=== PATIENT | male | born 1955 | race Caucasian/White ===

== ENCOUNTER 2017-02-09 06:44 | Inpatient (IN) | payer OTHER ==
[2017-02-09 07:34] LABS: ADD MAN DIFF? NO
[2017-02-09] MEDS: METHYLPREDNISOLONE 125 MG INJ IV (07:35)
[2017-02-09] MEDS: NITROGLYCERIN (SL) 0.4 MG TAB SL (07:36)
[2017-02-09] MEDS: FUROSEMIDE 40 MG INJ IV (07:36)
[2017-02-09] MEDS: NITROGLYCERIN 2% 1 GM OINT PKT TD (07:36)
[2017-02-09 07:41] LABS: BASOPHILS % 0.4 % (0.0-2.0); EOSINOPHILS % 0.3 % (0.0-7.0); HEMATOCRIT 42.9 % (42.0-52.0); HEMOGLOBIN 14.2 g/dl (14.0-18.0); LYMPHOCYTES # 1.4 10^3/ul (0.8-2.9); LYMPHOCYTES % 17.2 % (15.0-51.0); MEAN CORPUSCULAR HEMOGLOBIN 32.1 pg (29.0-33.0); MEAN CORPUSCULAR HGB CONC 33.1 g/dl (32.0-37.0); MEAN CORPUSCULAR VOLUME 97.1 fl (82.0-101.0); MEAN PLATELET VOLUME 11.3 fl (7.4-10.4); MONOCYTE # 0.6 10^3/ul (0.3-0.9); MONOCYTES % 7.2 % (0.0-11.0); NEUTROPHIL # 5.9 10^3/ul (1.6-7.5); NEUTROPHILS % 74.4 % (39.0-77.0); PLATELET COUNT 157 10^3/UL (140-415); RED BLOOD COUNT 4.42 10^6/ul (4.70-6.10); RED CELL DISTRIBUTION WIDTH 13.7 % (11.5-14.5)
[2017-02-09] MEDS: ASPIRIN 81 MG TAB PO (07:42)
[2017-02-09] MEDS: IPRATROPIUM (NEB) 0.5 MG/2.5 ML AMP INH (07:57)
[2017-02-09] MEDS: LEVALBUTEROL (NEB) 1.25 MG/0.5 ML AMP INH (07:58)
[2017-02-09 08:03] LABS: INR 1.01; PROTIME 13.4 Sec (11.9-14.9)
[2017-02-09 08:07] LABS: ALANINE AMINOTRANSFERASE 259 IU/L (13-69); ALBUMIN 4.4 g/dl (3.3-4.9); ALBUMIN/GLOBULIN RATIO 1.62; ALKALINE PHOSPHATASE 121 IU/L (42-121); ANION GAP 19 (8-16); ASPARTATE AMINO TRANSFERASE 217 IU/L (15-46); BILIRUBIN,INDIRECT 0.9 mg/dl (0-1.1); BILIRUBIN,TOTAL 0.9 mg/dl (0.2-1.3); BLOOD UREA NITROGEN 30 mg/dl (7-20); CALCIUM 9.1 mg/dl (8.4-10.2); CARBON DIOXIDE 22 mmol/L (21-31); CHLORIDE 106 mmol/L (97-110); CREATININE 0.78 mg/dl (0.61-1.24); GLUCOSE 132 mg/dl (70-220); POTASSIUM 3.7 mmol/L (3.5-5.1); SODIUM 143 mmol/L (135-144); TOTAL PROTEIN 7.1 g/dl (6.1-8.1)
[2017-02-09 08:19] LABS: TROPONIN-I 0.051 ng/ml (0.00-0.12)
[2017-02-09 08:44] LABS: D-DIMER 1375.89 ng/ml (<460)
[2017-02-09 08:55] LABS: LACTIC ACID 1.8 mmol/L (0.5-2.0)
[2017-02-09 09:39] LABS: ADD UMIC YES; UR ASCORBIC ACID NEGATIVE (NEGATIVE); UR BILIRUBIN (Dip) NEGATIVE (NEGATIVE); UR BLOOD (Dip) 1+ mg/dL (NEGATIVE); UR CLARITY CLEAR (CLEAR); UR COLOR STRAW (YELLOW); UR GLUCOSE (Dip) NEGATIVE (NEGATIVE); UR KETONES (Dip) NEGATIVE (NEGATIVE); UR LEUKOCYTE ESTERASE (Dip) NEGATIVE Leu/ul (NEGATIVE); UR NITRITE (Dip) NEGATIVE (NEGATIVE); UR RBC 0 /HPF (0-5); UR SPECIFIC GRAVITY (Dip) 1.006 (1.003-1.030); UR TOTAL PROTEIN (Dip) NEGATIVE (NEGATIVE); UR UROBILINOGEN (Dip) NEGATIVE (NEGATIVE); UR WBC 1 /HPF (0-5)
[2017-02-09] MEDS ORDERED: ONDANSETRON 4 MG INJ IV ×2 (10:30→11:30)
[2017-02-09] MEDS ORDERED: ACETAMINOPHEN 325 MG TAB PO (10:30)
[2017-02-09] MEDS: IOHEXOL 100 ML (10:44)
[2017-02-09] MEDS: SOD CHLORIDE 0.9% 100 ML (10:44)
[2017-02-09] MEDS ORDERED: NACL 0.9% 3 ML SYG IV (11:30)
[2017-02-09] MEDS ORDERED: HYDROCODONE/APAP (5/325) TAB PO ×2 (11:30)
[2017-02-09] MEDS ORDERED: DOCUSATE SODIUM 100 MG CAP PO (11:30)
[2017-02-09 11:58] LABS: LACTIC ACID 2.4 mmol/L (0.5-2.0)
[2017-02-09 13:06] LABS: CREATINE KINASE 42 IU/L (23-200)
[2017-02-09 13:20] LABS: CK INDEX 2.4
[2017-02-09 13:22] LABS: CK-MB 1.02 ng/ml (0.0-2.4)
[2017-02-09 13:23] LABS: TROPONIN-I 0.164 ng/ml (0.00-0.12)
[2017-02-09] MEDS: FAMOTIDINE 20 MG TAB PO ×2 (13:29→22:56)
[2017-02-09 13:39] LABS: THYROID STIMULATING HORMONE 0.477 MIU/L (0.465-4.680)
[2017-02-09] MEDS: ENOXAPARIN 40 MG/0.4 ML SYG SC (13:43)
[2017-02-09 18:13] LABS: CREATINE KINASE 41 IU/L (23-200)
[2017-02-09 18:25] LABS: CK INDEX 3.3; TROPONIN-I 0.059 ng/ml (0.00-0.12)
[2017-02-09 18:36] LABS: CK-MB 1.37 ng/ml (0.0-2.4)
[2017-02-09] MEDS: NICOTINE (21 MG/24 HR) PATCH TRANSDERM (22:56)
[2017-02-10] MEDS: DIPHENHYDRAMINE 25 MG CAP PO (00:01)
[2017-02-10 06:07] LABS: ADD MAN DIFF? NO
[2017-02-10 06:28] LABS: BASOPHILS % 0.1 % (0.0-2.0); HEMATOCRIT 41.8 % (42.0-52.0); HEMOGLOBIN 14.4 g/dl (14.0-18.0); LYMPHOCYTES # 0.9 10^3/ul (0.8-2.9); LYMPHOCYTES % 11.7 % (15.0-51.0); MEAN CORPUSCULAR HEMOGLOBIN 33.1 pg (29.0-33.0); MEAN CORPUSCULAR HGB CONC 34.4 g/dl (32.0-37.0); MEAN CORPUSCULAR VOLUME 96.1 fl (82.0-101.0); MEAN PLATELET VOLUME 11.4 fl (7.4-10.4); MONOCYTE # 0.4 10^3/ul (0.3-0.9); MONOCYTES % 5.8 % (0.0-11.0); NEUTROPHIL # 6.1 10^3/ul (1.6-7.5); PLATELET COUNT 141 10^3/UL (140-415); RED BLOOD COUNT 4.35 10^6/ul (4.70-6.10); RED CELL DISTRIBUTION WIDTH 13.7 % (11.5-14.5)
[2017-02-10 06:28] LABS: WHITE BLOOD COUNT 7.4 10^3/ul (4.8-10.8)
[2017-02-10 06:47] LABS: ANION GAP 20 (8-16); BLOOD UREA NITROGEN 32 mg/dl (7-20); CALCIUM 9.4 mg/dl (8.4-10.2); CARBON DIOXIDE 24 mmol/L (21-31); CHLORIDE 106 mmol/L (97-110); CREATININE 0.58 mg/dl (0.61-1.24); GLUCOSE 149 mg/dl (70-220); POTASSIUM 4.6 mmol/L (3.5-5.1); SODIUM 145 mmol/L (135-144)
[2017-02-10] MEDS: SOD CHLORIDE 0.9% 1,000 ML IV (08:30)
[2017-02-10 08:40] LABS: B-TYPE NATRIURETIC PEPTIDE 6580 PG/ML (0-125)
[2017-02-10] MEDS: ENOXAPARIN 40 MG/0.4 ML SYG SC (09:00)
[2017-02-10] MEDS: ASPIRIN 81 MG TAB PO (10:24)
[2017-02-10] MEDS: FAMOTIDINE 20 MG TAB PO ×2 (10:24→21:18)
[2017-02-10 10:36] LABS: LACTIC ACID 1.5 mmol/L (0.5-2.0)
[2017-02-10] MEDS ORDERED: IODIXANOL LOCM 100 ML BTL ×2 (18:05→18:18)
[2017-02-10] MEDS ORDERED: LIDOCAINE 1% (MDV) 20 ML INJ (18:05)
[2017-02-10] MEDS ORDERED: HEPARIN 1000 UNITS/ML 10 ML INJ ×2 (18:18→19:46)
[2017-02-10] MEDS ORDERED: NITROGLYCERIN (IC) 100 MCG/ML INJ (18:19)
[2017-02-10] MEDS ORDERED: VERAPAMIL 5 MG INJ (18:19)
[2017-02-10] MEDS ORDERED: MIDAZOLAM 1 MG/ML 2 ML INJ (18:19)
[2017-02-10] MEDS ORDERED: FENTAnyl 50 MCG/ML VIAL (18:19)
[2017-02-10] MEDS ORDERED: CLOPIDOGREL 300 MG TAB (18:59)
[2017-02-10] MEDS ORDERED: ASPIRIN 325 MG TAB (18:59)
[2017-02-10] MEDS: NICOTINE (21 MG/24 HR) PATCH TRANSDERM (20:30)
[2017-02-10] MEDS ORDERED: ATORVASTATIN 20 MG TAB PO (21:00)
[2017-02-10] MEDS: ATORVASTATIN 40 MG TAB PO (21:18)
[2017-02-11] MEDS: DIAZEPAM 5 MG TAB PO (00:11)
[2017-02-11 05:19] LABS: ADD MAN DIFF? NO
[2017-02-11 05:28] LABS: BASOPHILS % 0.1 % (0.0-2.0); EOSINOPHILS % 0.1 % (0.0-7.0); HEMATOCRIT 43.3 % (42.0-52.0); HEMOGLOBIN 14.2 g/dl (14.0-18.0); LYMPHOCYTES # 1.3 10^3/ul (0.8-2.9); LYMPHOCYTES % 11.5 % (15.0-51.0); MEAN CORPUSCULAR HEMOGLOBIN 32.6 pg (29.0-33.0); MEAN CORPUSCULAR HGB CONC 32.8 g/dl (32.0-37.0); MEAN CORPUSCULAR VOLUME 99.5 fl (82.0-101.0); MEAN PLATELET VOLUME 11.2 fl (7.4-10.4); MONOCYTE # 0.7 10^3/ul (0.3-0.9); MONOCYTES % 6.5 % (0.0-11.0); NEUTROPHIL # 8.8 10^3/ul (1.6-7.5); NEUTROPHILS % 81.2 % (39.0-77.0); PLATELET COUNT 167 10^3/UL (140-415); RED BLOOD COUNT 4.35 10^6/ul (4.70-6.10); RED CELL DISTRIBUTION WIDTH 14.4 % (11.5-14.5)
[2017-02-11 05:28] LABS: WHITE BLOOD COUNT 10.9 10^3/ul (4.8-10.8)
[2017-02-11 06:04] LABS: ANION GAP 17 (8-16); BLOOD UREA NITROGEN 37 mg/dl (7-20); CALCIUM 9.5 mg/dl (8.4-10.2); CARBON DIOXIDE 26 mmol/L (21-31); CHLORIDE 109 mmol/L (97-110); CREATININE 0.68 mg/dl (0.61-1.24); GLUCOSE 114 mg/dl (70-220); MAGNESIUM 2.1 mg/dl (1.7-2.5); POTASSIUM 4.5 mmol/L (3.5-5.1); SODIUM 147 mmol/L (135-144)
[2017-02-11] MEDS: CLOPIDOGREL 75 MG TAB PO (09:47)
[2017-02-11] MEDS: FAMOTIDINE 20 MG TAB PO ×2 (09:47→20:23)
[2017-02-11] MEDS: ASPIRIN 81 MG TAB PO (09:47)
[2017-02-11] MEDS: NICOTINE (21 MG/24 HR) PATCH TRANSDERM (09:48)
[2017-02-11] MEDS: ENOXAPARIN 40 MG/0.4 ML SYG SC (09:49)
[2017-02-11 17:11] LABS: TROPONIN-I 0.082 ng/ml (0.00-0.12)
[2017-02-11 17:11] LABS: B-TYPE NATRIURETIC PEPTIDE 4800 PG/ML (0-125)
[2017-02-11] MEDS ORDERED: METOPROLOL 5 MG INJ IV (17:30)
[2017-02-11] MEDS ORDERED: METOPROLOL 25 MG TAB PO (17:30)
[2017-02-11] MEDS: FUROSEMIDE 40 MG INJ IV (17:35)
[2017-02-11] MEDS: ATORVASTATIN 40 MG TAB PO (20:23)
[2017-02-12] MEDS: FUROSEMIDE 20 MG INJ IV ×2 (06:22→14:59)
[2017-02-12] MEDS ORDERED: METOPROLOL 25 MG TAB NGT (09:00)
[2017-02-12] MEDS: CLOPIDOGREL 75 MG TAB PO (09:11)
[2017-02-12] MEDS: FAMOTIDINE 20 MG TAB PO ×2 (09:11→20:37)
[2017-02-12 09:12] LABS: ADD MAN DIFF? NO
[2017-02-12] MEDS: ENOXAPARIN 40 MG/0.4 ML SYG SC (09:12)
[2017-02-12 09:15] LABS: BASOPHILS % 0.3 % (0.0-2.0); EOSINOPHILS # 0.1 10^3/ul (0.0-0.5); EOSINOPHILS % 0.8 % (0.0-7.0); HEMATOCRIT 47.8 % (42.0-52.0); HEMOGLOBIN 16.5 g/dl (14.0-18.0); LYMPHOCYTES # 1.8 10^3/ul (0.8-2.9); LYMPHOCYTES % 22.8 % (15.0-51.0); MEAN CORPUSCULAR HEMOGLOBIN 33.2 pg (29.0-33.0); MEAN CORPUSCULAR HGB CONC 34.5 g/dl (32.0-37.0); MEAN CORPUSCULAR VOLUME 96.2 fl (82.0-101.0); MEAN PLATELET VOLUME 11.3 fl (7.4-10.4); MONOCYTE # 0.7 10^3/ul (0.3-0.9); MONOCYTES % 8.4 % (0.0-11.0); NEUTROPHIL # 5.3 10^3/ul (1.6-7.5); NEUTROPHILS % 66.7 % (39.0-77.0); PLATELET COUNT 155 10^3/UL (140-415); RED BLOOD COUNT 4.97 10^6/ul (4.70-6.10); RED CELL DISTRIBUTION WIDTH 14.5 % (11.5-14.5)
[2017-02-12] MEDS: ASPIRIN 81 MG TAB PO (09:17)
[2017-02-12 09:37] LABS: ANION GAP 21 (8-16); BLOOD UREA NITROGEN 32 mg/dl (7-20); CALCIUM 9.3 mg/dl (8.4-10.2); CARBON DIOXIDE 29 mmol/L (21-31); CHLORIDE 100 mmol/L (97-110); CREATININE 0.75 mg/dl (0.61-1.24); GLUCOSE 74 mg/dl (70-220); POTASSIUM 3.7 mmol/L (3.5-5.1); SODIUM 146 mmol/L (135-144)
[2017-02-12] MEDS: NICOTINE (21 MG/24 HR) PATCH TRANSDERM (10:03)
[2017-02-12] MEDS: ATORVASTATIN 40 MG TAB PO (20:36)
[2017-02-13] MEDS: LORAZEPAM 2 MG INJ IV (01:47)
[2017-02-13 06:31] LABS: ADD MAN DIFF? NO
[2017-02-13 06:38] LABS: WHITE BLOOD COUNT 6.6 10^3/ul (4.8-10.8)
[2017-02-13 06:38] LABS: BASOPHILS % 0.3 % (0.0-2.0); EOSINOPHILS # 0.3 10^3/ul (0.0-0.5); EOSINOPHILS % 4.2 % (0.0-7.0); HEMATOCRIT 46.7 % (42.0-52.0); HEMOGLOBIN 16.1 g/dl (14.0-18.0); LYMPHOCYTES # 2.1 10^3/ul (0.8-2.9); LYMPHOCYTES % 32.1 % (15.0-51.0); MEAN CORPUSCULAR HEMOGLOBIN 32.5 pg (29.0-33.0); MEAN CORPUSCULAR HGB CONC 34.5 g/dl (32.0-37.0); MEAN CORPUSCULAR VOLUME 94.3 fl (82.0-101.0); MEAN PLATELET VOLUME 11.1 fl (7.4-10.4); MONOCYTE # 0.8 10^3/ul (0.3-0.9); MONOCYTES % 11.9 % (0.0-11.0); NEUTROPHIL # 3.4 10^3/ul (1.6-7.5); NEUTROPHILS % 50.7 % (39.0-77.0); PLATELET COUNT 151 10^3/UL (140-415); RED BLOOD COUNT 4.95 10^6/ul (4.70-6.10); RED CELL DISTRIBUTION WIDTH 14.1 % (11.5-14.5)
[2017-02-13 07:07] LABS: ANION GAP 15 (8-16); BLOOD UREA NITROGEN 38 mg/dl (7-20); CALCIUM 9.3 mg/dl (8.4-10.2); CARBON DIOXIDE 30 mmol/L (21-31); CHLORIDE 100 mmol/L (97-110); CREATININE 0.65 mg/dl (0.61-1.24); GLUCOSE 98 mg/dl (70-220); POTASSIUM 3.5 mmol/L (3.5-5.1); SODIUM 141 mmol/L (135-144)
[2017-02-13] MEDS: ASPIRIN 81 MG TAB PO (09:03)
[2017-02-13] MEDS: CLOPIDOGREL 75 MG TAB PO (09:03)
[2017-02-13] MEDS: FAMOTIDINE 20 MG TAB PO (09:03)
[2017-02-13] MEDS: FUROSEMIDE 20 MG TAB PO (09:04)
[2017-02-13] MEDS: NICOTINE (21 MG/24 HR) PATCH TRANSDERM (09:07)
[2017-02-13] MEDS: ENOXAPARIN 40 MG/0.4 ML SYG SC (09:49)
[2017-02-13] MEDS ORDERED: POTASSIUM CHLORIDE (SR) 20 MEQ TAB PO (11:30)
[2017-02-13] MEDS ORDERED: POTASSIUM BICARBONATE 25 MEQ TAB PO (11:30)
[2017-02-13] MEDS: POTASSIUM CHLORIDE (SR) 20 MEQ TAB PO (12:56)
[2017-02-13] MEDS: MAGNESIUM SULFATE 1 GM/D5W 100 ML IVPB (13:01)
[2017-02-13] MEDS: FUROSEMIDE 20 MG INJ IV (13:02)
== END 2017-02-13 16:35 | disposition home or self-care (01) | DRG 246 ==
LOC: TEL 02-11 11:10 → E/R 06:44 → ICU 02-10 19:32 → MS4 10:05
PROC: 027034Z Dilation of Coronary Artery, One Artery with Drug-eluting Intraluminal Device, Percutaneous Approach (ICD-10-PCS; principal; 2017-02-10 18:00)
PROC: 4A023N7 Measurement of Cardiac Sampling and Pressure, Left Heart, Percutaneous Approach (ICD-10-PCS; 2017-02-10 18:00)
PROC: B211YZZ Fluoroscopy of Multiple Coronary Arteries using Other Contrast (ICD-10-PCS; 2017-02-10 18:00)
PROC: B215YZZ Fluoroscopy of Left Heart using Other Contrast (ICD-10-PCS; 2017-02-10 18:00)
PROC: 5A09357 Assistance with Respiratory Ventilation, Less than 24 Consecutive Hours, Continuous Positive Airway Pressure (ICD-10-PCS; 2017-02-10 18:10)
DX: I21.9 Acute myocardial infarction, unspecified (principal); J96.91 Respiratory failure, unspecified with hypoxia; I50.43 Acute on chronic combined systolic (congestive) and diastolic (congestive) heart failure; I25.10 Atherosclerotic heart disease of native coronary artery without angina pectoris; I25.5 Ischemic cardiomyopathy; R59.0 Localized enlarged lymph nodes; Z72.0 Tobacco use; J43.9 Emphysema, unspecified; Z82.49 Family history of ischemic heart disease and other diseases of the circulatory system
CPT/HCPCS: 36415; 71045; 71275; 80048; 80053; 81001; 82550; 82553; 83605; 83735; 83880; 84443; 84484; 85025; 85378; 85610; 85730; 87040; 87086; 93005; 93306; 93458; 94644; 94660; 96374; 96375; 99291-25; J1940

== ENCOUNTER 2017-05-11 11:00 | Emergency (ER) | payer OTHER ==
[2017-05-11 11:51] LABS: ADD MAN DIFF? NO
[2017-05-11 11:54] LABS: WHITE BLOOD COUNT 6.7 10^3/ul (4.8-10.8)
[2017-05-11 11:54] LABS: BASOPHILS % 0.4 % (0.0-2.0); EOSINOPHILS # 0.2 10^3/ul (0.0-0.5); EOSINOPHILS % 3.3 % (0.0-7.0); HEMATOCRIT 42.2 % (42.0-52.0); HEMOGLOBIN 14.2 g/dl (14.0-18.0); LYMPHOCYTES # 1.5 10^3/ul (0.8-2.9); LYMPHOCYTES % 22.3 % (15.0-51.0); MEAN CORPUSCULAR HEMOGLOBIN 32.7 pg (29.0-33.0); MEAN CORPUSCULAR HGB CONC 33.6 g/dl (32.0-37.0); MEAN CORPUSCULAR VOLUME 97.2 fl (82.0-101.0); MEAN PLATELET VOLUME 11.4 fl (7.4-10.4); MONOCYTE # 0.7 10^3/ul (0.3-0.9); NEUTROPHIL # 4.2 10^3/ul (1.6-7.5); NEUTROPHILS % 62.6 % (39.0-77.0); PLATELET COUNT 127 10^3/UL (140-415); POSITIVE DIFF @See below; RED BLOOD COUNT 4.34 10^6/ul (4.70-6.10); RED CELL DISTRIBUTION WIDTH 15.9 % (11.5-14.5)
[2017-05-11] MEDS: LEVALBUTEROL (NEB) 1.25 MG/0.5 ML AMP INH (12:11)
[2017-05-11] MEDS: IPRATROPIUM (NEB) 0.5 MG/2.5 ML AMP NEB (12:11)
[2017-05-11 12:15] LABS: ANION GAP 17 (8-16); BLOOD UREA NITROGEN 19 mg/dl (7-20); CALCIUM 9.6 mg/dl (8.4-10.2); CARBON DIOXIDE 24 mmol/L (21-31); CHLORIDE 110 mmol/L (97-110); CREATININE 0.56 mg/dl (0.61-1.24); GLUCOSE 106 mg/dl (70-220); POTASSIUM 4.1 mmol/L (3.5-5.1); SODIUM 147 mmol/L (135-144)
[2017-05-11 12:16] LABS: INR 1.12; PROTIME 14.6 Sec (11.9-14.9); PT RATIO 1.1
[2017-05-11 12:17] LABS: PARTIAL THROMBOPLASTIN TIME 29.2 Sec (25.0-35.0)
[2017-05-11 12:24] LABS: B-TYPE NATRIURETIC PEPTIDE 4360 PG/ML (0-125)
[2017-05-11 12:26] LABS: TROPONIN-I < 0.012 ng/ml (0.00-0.12)
[2017-05-11] MEDS: FUROSEMIDE 40 MG INJ IV (12:38)
== END 2017-05-11 16:36 | disposition short-term general hospital (02) ==
LOC: E/R 11:00
DX: I50.9 Heart failure, unspecified (principal); D69.6 Thrombocytopenia, unspecified; I10 Essential (primary) hypertension; I25.10 Atherosclerotic heart disease of native coronary artery without angina pectoris; Z79.82 Long term (current) use of aspirin; Z87.891 Personal history of nicotine dependence
CPT/HCPCS: 36415; 71045; 80048; 83880; 84484; 85025; 85610; 85730; 93005; 94664; 96374; 99285-25